=== PATIENT | male | born 1940 | race Caucasian/White ===

== ENCOUNTER 2017-12-19 01:20 | Outpatient (CLI) | payer MEDICARE | END 2017-12-19 01:21 | disposition short-term general hospital (02) | LOC: EMS 01:20 | PROVIDERS: ATTEND Surgery | DX: R53.1 Weakness (principal); R52 Pain, unspecified; M79.89 Other specified soft tissue disorders; W18.11XA Fall from or off toilet without subsequent striking against object, initial encounter; Y92.002 Bathroom of unspecified non-institutional (private) residence as the place of occurrence of the external cause | CPT/HCPCS: A0425; A0427 ==

== ENCOUNTER 2018-03-24 17:10 | Outpatient (CLI) | payer MEDICARE | END 2018-03-24 17:11 | disposition E | LOC: EMS 17:10 | PROVIDERS: ATTEND Surgery ==